=== PATIENT | male | born 1945 | race Caucasian/White ===

== ENCOUNTER 2018-10-21 19:59 | Emergency (ER) | payer MEDICARE, BC | END 2018-10-21 20:50 | disposition home or self-care (01) | LOC: SCSER 19:59 | DX: I10 Essential (primary) hypertension (principal); E78.5 Hyperlipidemia, unspecified; G20 Parkinson's disease; E03.9 Hypothyroidism, unspecified; Z79.82 Long term (current) use of aspirin; Z79.899 Other long term (current) drug therapy | CPT/HCPCS: 93005 ==

== ENCOUNTER 2020-01-19 07:24 | Outpatient (CLI) | payer MEDICARE, BC, OTHER ==
--- NOTE | 2020-01-19 15:55 | RAD ---
PA AND LATERAL VIEWS CHEST: Date: 01/19/2020 HISTORY: Preoperative evaluation. FINDINGS: The heart size is normal. The aorta is tortuous. The lungs are well expanded without lobar consolidat ion, pneumothoraces, or pleural effusions. There are mild degenerative changes in the spine. IMPRESSION: No radiographic evidence of acute cardiopulmonary process. POS: [facility]
[2020-01-19 16:14] LABS: #Eosinphils 0.1 thou/uL (0.0-0.7); #Monocytes 0.4 thou/uL (0.11-0.59); %Basophils 0.2 % (0.0-1.0); %Eosinophils 1.6 % (0.0-10.0); %Lymphocytes 22.7 % (21.0-51.0); %Monocytes 8.7 % (0.0-10.0); %Neutrophils 66.8 % (42.0-75.0); Hemoglobin 13.8 g/dL (14.0-18.0); Mean Corpuscular Hemoglobin 34.2 pg (27.0-31.0); Mean Platelet Volume 8.9 fL (7.4-10.4); Platelet Count 125 thou/uL (130-400); RBC Distribution Width 11.8 % (11.5-14.5); Red Blood Cell (RBC) Count 4.03 mill/uL (4.70-6.10); White Blood Cell (WBC) Count 4.5 thou/uL (4.8-10.8)
[2020-01-19 16:52] LABS: Anion Gap 13 mmol/L (10-20); BUN (Urea Nitrogen) 18 mg/dL (8.4-25.7); Calc. Creatinine Clearance 0 mL/min (70-130); Calcium 9.3 mg/dL (7.8-10.44); Carbon Dioxide 27 mmol/L (23-31); Chloride 100 mmol/L (98-107); Estimated GFR-MDRD 69; Glucose 114 mg/dL (83-110); Potassium 4.5 mmol/L (3.5-5.1); Sodium 135 mmol/L (136-145)
[2020-01-20 11:57] LABS: SARS-CoV-2 MS2 Positive; SARS-CoV-2 N Gene Negative; SARS-CoV-2 S Gene Negative; SARS-CoV-2 by NAA Not Detected (NotDetected); SARS-CoV-2 orf1ab Negative
== END 2020-01-19 07:25 | disposition home or self-care (01) ==
LOC: LABBT 07:24 → SCSRAD 07:25
PROVIDERS: ATTEND Specialist
DX: Z01.818 Encounter for other preprocedural examination (principal); Z20.828 Contact with and (suspected) exposure to other viral communicable diseases; K40.90 Unilateral inguinal hernia, without obstruction or gangrene, not specified as recurrent
CPT/HCPCS: 71046; 80048; 85025; 87635; 93005; 93010; U0003

== ENCOUNTER 2023-02-22 13:04 | Outpatient (CLI) | payer MEDICARE, BC ==
[2023-02-22 15:27] LABS: #Eosinphils 0.1 10x3/uL (0.0-0.5); #Monocytes 0.7 10x3/uL (0.0-1.1); #Neutrophils 3.3 10x3/uL (1.5-8.4); %Basophils 0.6 % (0.0-2.0); %Eosinophils 1.5 % (0.0-6.0); %Monocytes 12.8 % (0.0-10.0); %Neutrophils 61.7 % (40.0-75.0); Hematocrit 40.1 % (38.8-50.0); Hemoglobin 13.5 g/dL (13.5-17.5); Mean Corpuscular HGB CONC 33.7 g/dL (32.0-36.0); Mean Corpuscular Hemoglobin 32.9 pg (27.0-33.0); Mean Corpuscular Volume 97.8 fl (81.2-95.1); Mean Platelet Volume 10.7 fl (7.4-10.4); Platelet Count 159 10x3/uL (150-450); RBC Distribution Width 11.8 % (11.5-14.5); White Blood Cell (WBC) Count 5.4 10x3/uL (3.5-10.5)
[2023-02-22 15:29] LABS: Anion Gap 12 mmol/L (10-20); BUN (Urea Nitrogen) 25 mg/dL (8.4-25.7); Calc. Creatinine Clearance 0 mL/min (70-130); Calcium 9.5 mg/dL (7.8-10.44); Carbon Dioxide 26 mmol/L (23-31); Chloride 104 mmol/L (98-107); Estimated GFR 69; Glucose 72 mg/dL (83-110); Potassium 4.6 mmol/L (3.5-5.1); Sodium 137 mmol/L (136-145)
== END 2023-02-22 13:05 | disposition home or self-care (01) ==
LOC: LABBT 13:04
PROVIDERS: ATTEND Specialist
DX: Z01.818 Encounter for other preprocedural examination (principal); K40.90 Unilateral inguinal hernia, without obstruction or gangrene, not specified as recurrent
CPT/HCPCS: 71046; 80048; 85025; 93005; 93010

== ENCOUNTER 2023-02-28 11:35 | Day surgery (SDC) | payer MEDICARE, BC ==
[2023-02-22 14:19] VITALS: BMI 24.3
[2023-02-28] MEDS ORDERED: Acetaminophen 500 MG TAB ONE (12:24)
[2023-02-28] MEDS ORDERED: Ketorolac Tromethamine 30 MG/ML VIAL ONE (12:24)
[2023-02-28] MEDS ORDERED: Bupivacaine PF 0.5% 30 ML VIAL ONE (14:23)
[2023-02-28] MEDS ORDERED: EPINEPHrine 1 MG/ML VIAL ONE (14:23)
== END 2023-02-28 14:56 | disposition home or self-care (01) ==
LOC: SDC 11:35
PROVIDERS: ATTEND Specialist
DX: K40.90 Unilateral inguinal hernia, without obstruction or gangrene, not specified as recurrent (principal); I10 Essential (primary) hypertension; E78.00 Pure hypercholesterolemia, unspecified; E07.9 Disorder of thyroid, unspecified; G20.C Parkinsonism, unspecified; Z53.8 Procedure and treatment not carried out for other reasons; Z79.899 Other long term (current) drug therapy; Z88.2 Allergy status to sulfonamides; Z79.82 Long term (current) use of aspirin; Z79.890 Hormone replacement therapy; Z88.8 Allergy status to other drugs, medicaments and biological substances; Z91.048 Other nonmedicinal substance allergy status
CPT/HCPCS: J0171; J1885; S0020

== ENCOUNTER 2023-03-05 11:10 | Outpatient (CLI) | payer MEDICARE, BC ==
[2023-03-05 12:59] LABS: #Eosinphils 0.1 10x3/uL (0.0-0.5); #Monocytes 0.7 10x3/uL (0.0-1.1); #Neutrophils 4.8 10x3/uL (1.5-8.4); %Basophils 0.4 % (0.0-2.0); %Eosinophils 0.9 % (0.0-6.0); %Lymphocytes 17.4 % (18.0-47.0); %Monocytes 10.1 % (0.0-10.0); %Neutrophils 71.1 % (40.0-75.0); ALT (SGPT) Less than 7 U/L (8-55); AST (SGOT) 27 U/L (5-34); Albumin 4.6 g/dL (3.4-4.8); Alkaline Phosphatase 76 U/L (40-110); Anion Gap 14 mmol/L (10-20); BUN (Urea Nitrogen) 20 mg/dL (8.4-25.7); Bilirubin, Total 2.1 mg/dL (0.2-1.2); Calc. Creatinine Clearance 0 mL/min (70-130); Calcium 9.9 mg/dL (7.8-10.44); Carbon Dioxide 26 mmol/L (23-31); Chloride 102 mmol/L (98-107); Estimated GFR 61; Globulin 2.3 g/dL (2.4-3.5); Glucose 91 mg/dL (83-110); Hematocrit 43.4 % (38.8-50.0); Hemoglobin 14.7 g/dL (13.5-17.5); Mean Corpuscular HGB CONC 33.9 g/dL (32.0-36.0); Mean Corpuscular Hemoglobin 33.1 pg (27.0-33.0); Mean Corpuscular Volume 97.7 fl (81.2-95.1); Mean Platelet Volume 10.1 fl (7.4-10.4); Platelet Count 158 10x3/uL (150-450); Potassium 4.6 mmol/L (3.5-5.1); Protein, Total 6.9 g/dL (5.8-8.1); RBC Distribution Width 11.9 % (11.5-14.5); Red Blood Cell (RBC) Count 4.44 10x6/uL (4.32-5.72); Sodium 137 mmol/L (136-145); White Blood Cell (WBC) Count 6.7 10x3/uL (3.5-10.5)
== END 2023-03-05 11:11 | disposition home or self-care (01) ==
LOC: LABBT 11:10
PROVIDERS: ATTEND Internal Medicine Cardiovascular Disease
DX: Z01.812 Encounter for preprocedural laboratory examination (principal)
CPT/HCPCS: 80053; 85025

== ENCOUNTER 2023-03-07 05:59 | Day surgery (SDC) | payer MEDICARE, BC ==
[2023-03-05 11:45] VITALS: BMI 24.3
[2023-03-07] MEDS ORDERED: Heparin 10,000 UNITS/ 10 ML VIAL ONE (06:19)
[2023-03-07] MEDS ORDERED: Lidocaine 1% (PF) 30 ML VIAL ONE (06:19)
[2023-03-07] MEDS ORDERED: Nitroglycerin 50 MG/250 ML BOT 0 ML ONE (06:20)
[2023-03-07] MEDS ORDERED: Midazolam HCl 2 mg/2 ml Vial ONE (07:20)
[2023-03-07] MEDS ORDERED: fentaNYL 50 mcg/mL 1 mL Vial ONE (07:20)
[2023-03-07] MEDS ORDERED: Iopamidol 370 76% 100 ML VIAL ONE (12:46)
== END 2023-03-07 12:50 | disposition home or self-care (01) ==
LOC: SDC 05:59
PROVIDERS: ATTEND Internal Medicine Cardiovascular Disease
PROC: 4A023N7 Measurement of Cardiac Sampling and Pressure, Left Heart, Percutaneous Approach (ICD-10-PCS; principal; 2023-03-07)
DX: R94.39 Abnormal result of other cardiovascular function study (principal); I65.23 Occlusion and stenosis of bilateral carotid arteries; I10 Essential (primary) hypertension; G20.C Parkinsonism, unspecified; E78.00 Pure hypercholesterolemia, unspecified; Z90.49 Acquired absence of other specified parts of digestive tract; Z90.89 Acquired absence of other organs; Z88.2 Allergy status to sulfonamides; Z88.8 Allergy status to other drugs, medicaments and biological substances; Z91.048 Other nonmedicinal substance allergy status
CPT/HCPCS: 93458; C1769; C1894; J3010; 36415; 86850; 86900; 86901; 99152; 99153; J1644; J2001; J2250; Q9967

== ENCOUNTER 2023-03-08 13:30 | Inpatient (IN) | payer MEDICARE, BC ==
[2023-03-11] MEDS ORDERED: PHENYLEPHRINE-NS 100 MCG/ML 10 ML SYRINGE ONE (07:15)
[2023-03-11] MEDS ORDERED: Heparin 10,000 UNITS/1 ML VIAL 30,000 UNITS in Sodium Chloride 0.9% 1,000 ML FS SCH (07:15)
[2023-03-11] MEDS ORDERED: Albumin 5% 500 ML ONE (07:15)
[2023-03-11] MEDS ORDERED: Dexmedetomidine 200 MCG/2 ML VIAL ONE (08:51)
[2023-03-11] MEDS ORDERED: Fentanyl 250 MCG/5 ML VIAL ONE (08:52)
[2023-03-11] MEDS ORDERED: Midazolam HCl 2 mg/2 ml Vial ONE (08:52)
[2023-03-11] MEDS ORDERED: CEFAZOLIN 2 GM VIAL ONE (08:58)
[2023-03-11] MEDS ORDERED: Sodium Chloride 0.9% 100 ML ONE (08:58)
[2023-03-11] MEDS ORDERED: Papaverine 60 MG/2 ML VIAL ONE (09:26)
[2023-03-11] MEDS ORDERED: Norepinephrine 4 MG/4 ML VIAL ONE (09:26)
[2023-03-11] MEDS ORDERED: Vecuronium 10 MG VIAL ONE (09:26)
[2023-03-11] MEDS ORDERED: Vancomycin 1 GM VIAL ONE (09:26)
[2023-03-11] MEDS ORDERED: Dexamethasone 20 MG/5 ML VIAL ONE (09:26)
[2023-03-11] MEDS ORDERED: Aminocaproic Acid 5 GM/20 ML VIAL ONE (09:26)
[2023-03-11] MEDS ORDERED: Protamine Sulfate 250 MG/25 ML VIAL ONE (09:26)
[2023-03-11] MEDS ORDERED: Cardioplegic Soln 1,000 ML BAG ONE (09:26)
[2023-03-11] MEDS ORDERED: Heparin 30,000 units/30 ml VIAL ONE (09:26)
[2023-03-11] MEDS ORDERED: Lidocaine 1% PF 5 ML VIAL ONE (09:26)
[2023-03-11] MEDS ORDERED: NEOSTIGMINE 3 MG/3 ML SYR 3 MG/3 ML SYRINGE ONE (09:26)
[2023-03-11] MEDS ORDERED: Mannitol 12.5 GM/50 ML ONE (09:26)
[2023-03-11] MEDS ORDERED: Lidocaine 2% PF 100 mg/5 ml Syringe ONE (09:26)
[2023-03-11] MEDS ORDERED: Potassium Chloride 60 MEQ/30 ML VIAL ONE (09:26)
[2023-03-11] MEDS ORDERED: Heparin 5,000 UNITS/ML VIAL ONE (09:26)
[2023-03-11] MEDS ORDERED: Thrombin 5000 UNITS/5 ML VIAL ONE (09:26)
[2023-03-11] MEDS ORDERED: Calcium Chloride 1 GM/10 ML Abboject SYRINGE ONE (09:26)
[2023-03-11] MEDS ORDERED: Nitroglycerin 50 MG/250 ML BOT ONE (09:26)
[2023-03-11] MEDS ORDERED: Glycopyrrolate 0.2 MG/ML 5 ML SYRINGE ONE (09:26)
[2023-03-11] MEDS ORDERED: PROPOFOL 200 MG/20 ML VIAL ONE (09:26)
[2023-03-11] MEDS ORDERED: Sodium Bicarb 50 MEQ/50 ML VIAL ONE (09:26)
[2023-03-11] MEDS ORDERED: Magnesium 5 GM/10 ML VIAL ONE (09:26)
[2023-03-11] MEDS ORDERED: HYDROcodone/Acetaminophen 5/325 mg Tablet PO PRN ×2 (12:53)
[2023-03-11] MEDS ORDERED: hydrALAZINE 20 MG/ML VIAL SLOW IVP PRN (12:53)
[2023-03-11] MEDS ORDERED: Nitroglycerin 50 MG/250 ML BOT 250 ML IVPB PRN (12:53)
[2023-03-11] MEDS ORDERED: Bisacodyl 5 MG TAB PO PRN (12:53)
[2023-03-11] MEDS ORDERED: fentaNYL 50 mcg/mL 1 mL Vial SLOW IVP PRN ×2 (12:53)
[2023-03-11] MEDS ORDERED: Bisacodyl 10 MG SUPP PR PRN (12:53)
[2023-03-11] MEDS ORDERED: Ipratropium/Albuterol 3 ML NEB NEB PRN (12:53)
[2023-03-11] MEDS ORDERED: Hetastarch 6% 500 ML 500 ML IVPB PRN (12:53)
[2023-03-11] MEDS ORDERED: DOPamine 400 MG/D5W 250 ML 250 ML IVPB PRN (12:53)
[2023-03-11] MEDS ORDERED: Potassium Chloride 20 MEQ/100 ML PREMIX BAG IVPB PRN (12:53)
[2023-03-11] MEDS ORDERED: Mag-Al 1200 mg/1200 mg/30 ML UDCUP PO PRN (12:53)
[2023-03-11] MEDS ORDERED: Ondansetron PF 4 MG/2 ML Vial IVP PRN (12:53)
[2023-03-11] MEDS ORDERED: niCARdipine 25 MG in Sodium Chloride 0.9% 250 ML 250 ML IVPB PRN (12:53)
[2023-03-11] MEDS ORDERED: Post-Op Insulin Drip Protocol IVPB ONE (12:53)
[2023-03-11] MEDS ORDERED: NOREPINEPHRINE 8 MG/250 ML-D5W 250 ML IVPB PRN (12:53)
[2023-03-11] MEDS ORDERED: Guaifenesin DM 100-10/5 ML UDCUP PO PRN (12:53)
[2023-03-11] MEDS ORDERED: Dextrose 5% in Water 1,000 ML IV PRN (13:15)
[2023-03-11] MEDS ORDERED: HUMULIN R 100 UNITS in Sodium Chloride 0.9% 100 ML IVPB SCH (13:15)
[2023-03-11] MEDS ORDERED: Dextrose 50% Abboject 50 ML SYRINGE SLOW IVP PRN (13:15)
[2023-03-11] MEDS ORDERED: Glucagon 1 MG/ML KIT SC PRN (13:15)
[2023-03-11] MEDS: Insulin Regular 300 UNITS/3 ML VIAL SC PRN ×3 (13:59→21:32)
[2023-03-11] MEDS: Lactated Ringer's 1,000 ML IV SCH ×2 (14:04→23:16)
[2023-03-11 14:16] LABS: #Monocytes 0.4 thou/uL (0.11-0.59); #Neutrophils 7.2 thou/uL (1.40-6.50); %Basophils 0.4 % (0.0-1.0); %Eosinophils 0.5 % (0.0-10.0); %Lymphocytes 7.5 % (21.0-51.0); %Monocytes 5.1 % (0.0-10.0); %Neutrophils 85.4 % (42.0-75.0); Hematocrit 34.2 % (42.0-52.0); Hemoglobin 11.7 g/dL (14.0-18.0); Mean Corpuscular HGB CONC 34.2 g/dL (32.0-36.0); Mean Corpuscular Hemoglobin 33.4 pg (27.0-31.0); Mean Corpuscular Volume 97.7 fl (78.0-98.0); Mean Platelet Volume 10.5 fL (7.4-10.4); Platelet Count 106 10x3/uL (130-400); RBC Distribution Width 11.9 % (11.5-14.5); White Blood Cell (WBC) Count 8.4 10x3/uL (4.8-10.8)
[2023-03-11 14:28] LABS: INR-International Normal Ratio 1.3; Prothrombin Time 17.2 sec (12.0-14.7)
[2023-03-11 14:29] LABS: PTT 32.8 sec (22.9-36.1)
[2023-03-11 14:38] LABS: Anion Gap 11 mmol/L (10-20); BUN (Urea Nitrogen) 12 mg/dL (8.4-25.7); Calc. Creatinine Clearance 76 mL/min (70-130); Calcium 8.5 mg/dL (7.8-10.44); Carbon Dioxide 22 mmol/L (23-31); Chloride 107 mmol/L (98-107); Estimated GFR 90; Glucose 143 mg/dL (83-110); Potassium 4.3 mmol/L (3.5-5.1); Sodium 136 mmol/L (136-145)
[2023-03-11] MEDS: Ketorolac Tromethamine 30 MG/ML VIAL IVP SCH ×2 (17:23→23:16)
[2023-03-11] MEDS: CEFAZOLIN 2 GM in Sodium Chloride 0.9% 100 ML IVPB SCH (17:23)
[2023-03-11] MEDS: Carbidopa/Levodopa 25-250 mg Tablet PO SCH ×3 (17:33→21:31)
[2023-03-11 19:43] LABS: Hematocrit 32.5 % (42.0-52.0); Hemoglobin 11.4 g/dL (14.0-18.0)
[2023-03-11 20:11] LABS: Potassium 4.2 mmol/L (3.5-5.1)
[2023-03-11] MEDS ORDERED: Tamsulosin HCl 0.4 MG CAP PO SCH ×2 (21:00→23:59)
[2023-03-11] MEDS: Atorvastatin Calcium 20 MG TAB PO SCH (21:31)
[2023-03-11] MEDS: Carbidopa/Levodopa 25-100 mg Tablet PO SCH (21:31)
[2023-03-11] MEDS: Famotidine/PF 20 mg/2ml Vial SLOW IVP SCH (21:35)
[2023-03-12] MEDS: CEFAZOLIN 2 GM in Sodium Chloride 0.9% 100 ML IVPB SCH ×2 (00:17→08:31)
[2023-03-12] MEDS: Insulin Regular 300 UNITS/3 ML VIAL SC PRN ×2 (01:06→06:25)
[2023-03-12] MEDS: Levothyroxine Sodium 25 MCG TAB PO SCH (05:31)
[2023-03-12] MEDS: Ketorolac Tromethamine 30 MG/ML VIAL IVP SCH (05:31)
[2023-03-12] MEDS: Levothyroxine Sodium 112 MCG TAB PO SCH (05:35)
[2023-03-12 05:50] LABS: #Monocytes 0.8 thou/uL (0.11-0.59); #Neutrophils 8.2 thou/uL (1.40-6.50); %Basophils 0.1 % (0.0-1.0); %Lymphocytes 5.5 % (21.0-51.0); %Monocytes 8.6 % (0.0-10.0); %Neutrophils 85.5 % (42.0-75.0); Hematocrit 29.3 % (42.0-52.0); Hemoglobin 10.2 g/dL (14.0-18.0); Mean Corpuscular HGB CONC 34.8 g/dL (32.0-36.0); Mean Corpuscular Hemoglobin 33.7 pg (27.0-31.0); Mean Corpuscular Volume 96.7 fl (78.0-98.0); Mean Platelet Volume 10.8 fL (7.4-10.4); Platelet Count 114 10x3/uL (130-400); Red Blood Cell (RBC) Count 3.03 mill/uL (4.70-6.10); White Blood Cell (WBC) Count 9.6 10x3/uL (4.8-10.8)
[2023-03-12 06:11] LABS: Anion Gap 14 mmol/L (10-20); BUN (Urea Nitrogen) 20 mg/dL (8.4-25.7); Calc. Creatinine Clearance 61 mL/min (70-130); Calcium 8.6 mg/dL (7.8-10.44); Carbon Dioxide 20 mmol/L (23-31); Chloride 105 mmol/L (98-107); Estimated GFR 76; Glucose 127 mg/dL (83-110); Potassium 4.8 mmol/L (3.5-5.1); Sodium 134 mmol/L (136-145)
[2023-03-12] MEDS: Aspirin 325 MG TAB PO SCH (08:25)
[2023-03-12] MEDS: Famotidine/PF 20 mg/2ml Vial SLOW IVP SCH ×2 (08:25→21:48)
[2023-03-12] MEDS: Carbidopa/Levodopa 25-250 mg Tablet PO SCH ×4 (08:28→21:47)
[2023-03-12] MEDS: Polyethylene Glycol 3350 17 GM Packet PO SCH (08:28)
[2023-03-12] MEDS: Carbidopa/Levodopa 25-100 mg Tablet PO SCH ×4 (08:28→21:47)
[2023-03-12] MEDS ORDERED: Non-Formulary Item 1 EACH (Levothyroxine Sodium [Synthroid] 137 MCG Tablet) PO SCH (09:00)
[2023-03-12] MEDS: Morphine 2 MG/ML VIAL SLOW IVP PRN ×2 (09:47→12:27)
[2023-03-12] MEDS: Tamsulosin HCl 0.4 MG CAP PO SCH (21:47)
[2023-03-12] MEDS: Atorvastatin Calcium 20 MG TAB PO SCH (21:48)
[2023-03-12] MEDS: Acetaminophen 325 MG TAB PO PRN (22:39)
[2023-03-13 05:08] LABS: #Monocytes 1.2 thou/uL (0.11-0.59); %Basophils 0.2 % (0.0-1.0); %Eosinophils 0.1 % (0.0-10.0); %Lymphocytes 8.3 % (21.0-51.0); %Monocytes 10.4 % (0.0-10.0); %Neutrophils 80.6 % (42.0-75.0); Hematocrit 27.6 % (42.0-52.0); Hemoglobin 9.5 g/dL (14.0-18.0); Mean Corpuscular HGB CONC 34.4 g/dL (32.0-36.0); Mean Corpuscular Hemoglobin 34.3 pg (27.0-31.0); Mean Corpuscular Volume 99.6 fl (78.0-98.0); Mean Platelet Volume 11.2 fL (7.4-10.4); Platelet Count 105 10x3/uL (130-400); RBC Distribution Width 12.3 % (11.5-14.5); Red Blood Cell (RBC) Count 2.77 mill/uL (4.70-6.10); White Blood Cell (WBC) Count 11.1 10x3/uL (4.8-10.8)
[2023-03-13 05:19] LABS: Anion Gap 10 mmol/L (10-20); BUN (Urea Nitrogen) 27 mg/dL (8.4-25.7); Calc. Creatinine Clearance 60 mL/min (70-130); Calcium 8.9 mg/dL (7.8-10.44); Carbon Dioxide 25 mmol/L (23-31); Chloride 100 mmol/L (98-107); Estimated GFR 74; Glucose 120 mg/dL (83-110); Potassium 4.9 mmol/L (3.5-5.1); Sodium 130 mmol/L (136-145)
[2023-03-13] MEDS: Levothyroxine Sodium 112 MCG TAB PO SCH (06:41)
[2023-03-13] MEDS: Levothyroxine Sodium 25 MCG TAB PO SCH (06:41)
[2023-03-13] MEDS: Aspirin 325 MG TAB PO SCH (08:20)
[2023-03-13] MEDS: Carbidopa/Levodopa 25-250 mg Tablet PO SCH ×4 (08:20→21:33)
[2023-03-13] MEDS: Carbidopa/Levodopa 25-100 mg Tablet PO SCH ×4 (08:20→21:33)
[2023-03-13] MEDS: Famotidine/PF 20 mg/2ml Vial SLOW IVP SCH ×2 (08:21→21:33)
[2023-03-13] MEDS: Acetaminophen 325 MG TAB PO PRN ×2 (08:22→21:33)
[2023-03-13] MEDS: Polyethylene Glycol 3350 17 GM Packet PO SCH ×2 (08:26→10:35)
[2023-03-13] MEDS ORDERED: Lactated Ringer's 500 ML IV SCH (08:30)
[2023-03-13 09:39] LABS: Hematocrit 30.1 % (42.0-52.0); Hemoglobin 10.2 g/dL (14.0-18.0); Platelet Count 93 10x3/uL (130-400)
[2023-03-13] MEDS: Ketorolac Tromethamine 30 MG/ML VIAL IVP SCH ×4 (10:33→23:32)
[2023-03-13 14:22] LABS: Hematocrit 27.8 % (42.0-52.0); Hemoglobin 9.4 g/dL (14.0-18.0); Platelet Count 92 10x3/uL (130-400)
[2023-03-13] MEDS: Atorvastatin Calcium 20 MG TAB PO SCH (21:33)
[2023-03-13] MEDS: Tamsulosin HCl 0.4 MG CAP PO SCH (21:34)
[2023-03-14 04:37] LABS: #Eosinphils 0.1 thou/uL (0.0-0.7); #Neutrophils 6.7 thou/uL (1.40-6.50); %Basophils 0.2 % (0.0-1.0); %Eosinophils 0.8 % (0.0-10.0); %Lymphocytes 12.5 % (21.0-51.0); %Neutrophils 75.2 % (42.0-75.0); Hematocrit 26.2 % (42.0-52.0); Mean Corpuscular HGB CONC 34.4 g/dL (32.0-36.0); Mean Corpuscular Hemoglobin 33.6 pg (27.0-31.0); Mean Corpuscular Volume 97.8 fl (78.0-98.0); Mean Platelet Volume 11.2 fL (7.4-10.4); Platelet Count 96 10x3/uL (130-400); RBC Distribution Width 12.2 % (11.5-14.5); Red Blood Cell (RBC) Count 2.68 mill/uL (4.70-6.10); White Blood Cell (WBC) Count 8.9 10x3/uL (4.8-10.8)
[2023-03-14 05:00] LABS: Anion Gap 10 mmol/L (10-20); BUN (Urea Nitrogen) 34 mg/dL (8.4-25.7); Calc. Creatinine Clearance 53 mL/min (70-130); Calcium 8.4 mg/dL (7.8-10.44); Carbon Dioxide 24 mmol/L (23-31); Chloride 97 mmol/L (98-107); Estimated GFR 64; Glucose 103 mg/dL (83-110); Potassium 4.2 mmol/L (3.5-5.1); Sodium 127 mmol/L (136-145)
[2023-03-14] MEDS: Ketorolac Tromethamine 30 MG/ML VIAL IVP SCH (06:01)
[2023-03-14] MEDS ORDERED: traMADol HCl 50 MG TAB PO PRN (06:05)
[2023-03-14] MEDS: Levothyroxine Sodium 112 MCG TAB PO SCH (06:06)
[2023-03-14] MEDS: Levothyroxine Sodium 25 MCG TAB PO SCH (06:06)
[2023-03-14] MEDS: Sodium Chloride 0.9% 1,000 ML IV SCH (06:15)
[2023-03-14] MEDS ORDERED: Nitroglycerin 0.4 MG TAB (25 Tab Bottle) SL PRN (08:42)
[2023-03-14] MEDS ORDERED: Mineral Oil ENEMA PR PRN (08:42)
[2023-03-14] MEDS ORDERED: Artificial Tear Sol 15 ML BOT EA EYE PRN (08:42)
[2023-03-14] MEDS: Aspirin 325 MG TAB PO SCH (10:00)
[2023-03-14] MEDS: Famotidine 20 MG TAB PO SCH ×2 (10:00→21:52)
[2023-03-14] MEDS: Carbidopa/Levodopa 25-100 mg Tablet PO SCH ×4 (10:00→21:51)
[2023-03-14] MEDS: Carbidopa/Levodopa 25-250 mg Tablet PO SCH ×4 (10:01→21:51)
[2023-03-14] MEDS ORDERED: FLU VACC QS2023(65UP)/MF59C/PF 60 MCG/0.5 ML SYRINGE IM ONE (15:00)
[2023-03-14] MEDS: Atorvastatin Calcium 20 MG TAB PO SCH (21:50)
[2023-03-14] MEDS: Tamsulosin HCl 0.4 MG CAP PO SCH (21:52)
[2023-03-14] MEDS: Acetaminophen 325 MG TAB PO PRN (21:52)
[2023-03-15 04:49] LABS: #Eosinphils 0.1 thou/uL (0.0-0.7); #Monocytes 0.8 thou/uL (0.11-0.59); #Neutrophils 4.5 thou/uL (1.40-6.50); %Basophils 0.2 % (0.0-1.0); %Eosinophils 1.5 % (0.0-10.0); %Monocytes 12.7 % (0.0-10.0); %Neutrophils 72.1 % (42.0-75.0); Hematocrit 24.7 % (42.0-52.0); Hemoglobin 8.6 g/dL (14.0-18.0); Mean Corpuscular HGB CONC 34.8 g/dL (32.0-36.0); Mean Corpuscular Hemoglobin 34.3 pg (27.0-31.0); Mean Corpuscular Volume 98.4 fl (78.0-98.0); Mean Platelet Volume 11.6 fL (7.4-10.4); RBC Distribution Width 12.2 % (11.5-14.5); Red Blood Cell (RBC) Count 2.51 mill/uL (4.70-6.10); White Blood Cell (WBC) Count 6.2 10x3/uL (4.8-10.8)
[2023-03-15 05:10] LABS: Anion Gap 9 mmol/L (10-20); BUN (Urea Nitrogen) 28 mg/dL (8.4-25.7); Calc. Creatinine Clearance 60 mL/min (70-130); Calcium 8.6 mg/dL (7.8-10.44); Carbon Dioxide 25 mmol/L (23-31); Chloride 103 mmol/L (98-107); Estimated GFR 69; Glucose 101 mg/dL (83-110); Potassium 4.1 mmol/L (3.5-5.1); Sodium 133 mmol/L (136-145)
[2023-03-15 05:36] LABS: Platelet Count 109 10x3/uL (130-400)
[2023-03-15] MEDS: Sodium Chloride 0.9% 1,000 ML IV SCH (05:40)
[2023-03-15] MEDS: Levothyroxine Sodium 25 MCG TAB PO SCH (05:40)
[2023-03-15] MEDS: Levothyroxine Sodium 112 MCG TAB PO SCH (05:40)
[2023-03-15] MEDS: Carbidopa/Levodopa 25-100 mg Tablet PO SCH ×4 (08:32→20:29)
[2023-03-15] MEDS: Polyethylene Glycol 3350 17 GM Packet PO SCH (08:32)
[2023-03-15] MEDS: Aspirin Chewable 81 MG TAB PO SCH (08:32)
[2023-03-15] MEDS: Carbidopa/Levodopa 25-250 mg Tablet PO SCH ×4 (08:32→20:29)
[2023-03-15] MEDS: Multivit, Chewable SF 1 TAB PO SCH (08:32)
[2023-03-15] MEDS: Furosemide 40 MG TAB PO SCH (08:32)
[2023-03-15] MEDS: Famotidine 20 MG TAB PO SCH ×2 (08:32→20:30)
[2023-03-15] MEDS ORDERED: Potassium Chloride 20 MEQ TAB PO SCH (12:00)
[2023-03-15] MEDS: Atorvastatin Calcium 20 MG TAB PO SCH (20:29)
[2023-03-15] MEDS: Tamsulosin HCl 0.4 MG CAP PO SCH (20:30)
[2023-03-15] MEDS: Rosuvastatin 10 MG TAB PO SCH (20:30)
[2023-03-16 04:59] LABS: #Eosinphils 0.1 thou/uL (0.0-0.7); #Monocytes 0.8 thou/uL (0.11-0.59); #Neutrophils 3.8 thou/uL (1.40-6.50); %Basophils 0.4 % (0.0-1.0); %Eosinophils 2.3 % (0.0-10.0); %Lymphocytes 16.1 % (21.0-51.0); %Monocytes 14.3 % (0.0-10.0); %Neutrophils 66.5 % (42.0-75.0); Hematocrit 26.3 % (42.0-52.0); Hemoglobin 8.9 g/dL (14.0-18.0); Mean Corpuscular HGB CONC 33.8 g/dL (32.0-36.0); Mean Corpuscular Hemoglobin 33.6 pg (27.0-31.0); Mean Corpuscular Volume 99.2 fl (78.0-98.0); Mean Platelet Volume 10.6 fL (7.4-10.4); Platelet Count 142 10x3/uL (130-400); RBC Distribution Width 12.2 % (11.5-14.5); Red Blood Cell (RBC) Count 2.65 mill/uL (4.70-6.10); White Blood Cell (WBC) Count 5.7 10x3/uL (4.8-10.8)
[2023-03-16] MEDS: Levothyroxine Sodium 25 MCG TAB PO SCH (06:12)
[2023-03-16] MEDS: Levothyroxine Sodium 112 MCG TAB PO SCH (06:12)
[2023-03-16] MEDS: Multivit, Chewable SF 1 TAB PO SCH (09:04)
[2023-03-16] MEDS: Furosemide 40 MG TAB PO SCH (09:04)
[2023-03-16] MEDS: Polyethylene Glycol 3350 17 GM Packet PO SCH (09:04)
[2023-03-16] MEDS: Carbidopa/Levodopa 25-250 mg Tablet PO SCH ×4 (09:04→21:06)
[2023-03-16] MEDS: Famotidine 20 MG TAB PO SCH ×2 (09:04→21:05)
[2023-03-16] MEDS: Carbidopa/Levodopa 25-100 mg Tablet PO SCH ×4 (09:04→21:06)
[2023-03-16] MEDS: Aspirin Chewable 81 MG TAB PO SCH (09:04)
[2023-03-16] MEDS ORDERED: Ezetimibe 10 MG TAB PO SCH (21:00)
[2023-03-16] MEDS: Rosuvastatin 10 MG TAB PO SCH (21:06)
[2023-03-16] MEDS: Tamsulosin HCl 0.4 MG CAP PO SCH (21:06)
[2023-03-17 05:36] VITALS: TEMP 97.7; BMI 24.5
[2023-03-17] MEDS: Levothyroxine Sodium 25 MCG TAB PO SCH (06:31)
[2023-03-17] MEDS: Levothyroxine Sodium 112 MCG TAB PO SCH (06:31)
[2023-03-17] MEDS: Carbidopa/Levodopa 25-250 mg Tablet PO SCH (08:40)
[2023-03-17] MEDS: Famotidine 20 MG TAB PO SCH (08:40)
[2023-03-17] MEDS: Carbidopa/Levodopa 25-100 mg Tablet PO SCH (08:40)
[2023-03-17] MEDS: Aspirin Chewable 81 MG TAB PO SCH (08:41)
[2023-03-17] MEDS: Furosemide 40 MG TAB PO SCH (08:41)
[2023-03-17] MEDS: Multivit, Chewable SF 1 TAB PO SCH (08:45)
[2023-03-17] MEDS: Polyethylene Glycol 3350 17 GM Packet PO SCH (08:45)
[2023-03-17] MEDS ORDERED: Lisinopril 2.5 MG TAB PO SCH (09:00)
[2023-03-17 12:02] VITALS: BP 99/50
[2023-03-25 14:12] LABS: Actual Bicarbonate (HCO3a) 23.2 mEq/L (22-28); Analyzer IN Cardio OR; Base Excess (BEa) -0.6 mEq/L (-2.0 to +3.0); CO2 Tension 35.5 mmHg (35.0-45.0); Calcium, Ionized (arterial) 1.17 mmol/L (1.12-1.30); Carboxyhemoglobin (COHb) 0.3 gm% (0.0-3.0); Hematocrit-ABG 37 % (42.0-52.0); Hemoglobin (Hb) 12.7 g/dL (14.0-18.0); O2 Tension (PaO2), arterial 480.5 mmHg (> 70.0); Potassium - ABG Lab 4.12 mmol/L (3.70-5.30); pH, Arterial 7.434 (7.35-7.45)
[2023-03-25 14:13] LABS: Actual Bicarbonate (HCO3a) 23.3 mEq/L (22-28); Analyzer IN Cardio OR; Base Excess (BEa) -0.6 mEq/L (-2.0 to +3.0); CO2 Tension 35.9 mmHg (35.0-45.0); Calcium, Ionized (arterial) 1.16 mmol/L (1.12-1.30); Carboxyhemoglobin (COHb) 0.3 gm% (0.0-3.0); Hematocrit-ABG 35 % (42.0-52.0); O2 Tension (PaO2), arterial 375.5 mmHg (> 70.0); Potassium - ABG Lab 4.23 mmol/L (3.70-5.30)
[2023-03-25 14:13] LABS: Actual Bicarbonate (HCO3a) 24.8 mEq/L (22-28); Analyzer IN Cardio OR; Base Excess (BEa) -1.3 mEq/L (-2.0 to +3.0); CO2 Tension 48.3 mmHg (35.0-45.0); Calcium, Ionized (arterial) 1.09 mmol/L (1.12-1.30); Carboxyhemoglobin (COHb) 0.3 gm% (0.0-3.0); Hematocrit-ABG 29 % (42.0-52.0); Hemoglobin (Hb) 9.7 g/dL (14.0-18.0); O2 Tension (PaO2), arterial 436.3 mmHg (> 70.0); Potassium - ABG Lab 5.09 mmol/L (3.70-5.30); pH, Arterial 7.329 (7.35-7.45)
[2023-03-25 14:15] LABS: Actual Bicarbonate (HCO3v) 24.4 mEq/L (22-28); Analyzer IN Cardio OR; Calcium, Ionized (venous) 1.12 mmol/L (1.16-1.32); Chloride (VBG) 104 mmol/L (98-106); Hematocrit-VBG 28 % (42.0-52.0); Hemoglobin (Hb) 9.6 g/dL (12.6-17.4); Potassium (VBG) 5.18 mmol/L (3.70-5.30); Sodium 133 mmol/L (133-146); pH (venous) 7.312 (7.32-7.43)
[2023-03-25 14:16] LABS: Actual Bicarbonate (HCO3a) 22.6 mEq/L (22-28); Analyzer IN Cardio OR; Calcium, Ionized (arterial) 1.19 mmol/L (1.12-1.30); Carboxyhemoglobin (COHb) 0.3 gm% (0.0-3.0); Hematocrit-ABG 28 % (42.0-52.0); Hemoglobin (Hb) 9.6 g/dL (14.0-18.0); O2 Tension (PaO2), arterial 452.6 mmHg (> 70.0); Potassium - ABG Lab 4.49 mmol/L (3.70-5.30); pH, Arterial 7.393 (7.35-7.45)
[2023-03-25 14:18] LABS: Actual Bicarbonate (HCO3a) 22.6 mEq/L (22-28); Analyzer IN Cardio OR; CO2 Tension 37.7 mmHg (35.0-45.0); Calcium, Ionized (arterial) 1.16 mmol/L (1.12-1.30); Hematocrit-ABG 34 % (42.0-52.0); Hemoglobin (Hb) 11.7 g/dL (14.0-18.0); O2 Tension (PaO2), arterial 485.6 mmHg (> 70.0); Potassium - ABG Lab 4.53 mmol/L (3.70-5.30); Puncture Site Arterial Line; pH, Arterial 7.395 (7.35-7.45)
[2023-03-25 14:19] LABS: Puncture Site Arterial Line
[2023-03-25 14:20] LABS: Puncture Site Arterial Line
[2023-03-25 14:20] LABS: Puncture Site Arterial Line
[2023-03-25 14:20] LABS: Puncture Site Arterial Line
== END 2023-03-17 14:00 | disposition home or self-care (01) | DRG 236 ==
LOC: SURG A 03-11 06:59 → CCU 03-11 13:52 → 2NO 03-14 16:33
PROVIDERS: ADMIT Thoracic Surgery (Cardiothoracic Vascular Surgery); ATTEND Thoracic Surgery (Cardiothoracic Vascular Surgery)
PROC: 02100Z9 Bypass Coronary Artery, One Artery from Left Internal Mammary, Open Approach (ICD-10-PCS; principal; 2023-03-11)
PROC: 021009W Bypass Coronary Artery, One Artery from Aorta with Autologous Venous Tissue, Open Approach (ICD-10-PCS; 2023-03-11)
PROC: 06BQ3ZZ Excision of Left Saphenous Vein, Percutaneous Approach (ICD-10-PCS; 2023-03-11)
PROC: 5A1221Z Performance of Cardiac Output, Continuous (ICD-10-PCS; 2023-03-11)
PROC: 02L70CK Occlusion of Left Atrial Appendage with Extraluminal Device, Open Approach (ICD-10-PCS; 2023-03-11)
PROC: 30233J1 Transfusion of Nonautologous Serum Albumin into Peripheral Vein, Percutaneous Approach (ICD-10-PCS; 2023-03-11)
PROC: 5A1223Z Performance of Cardiac Pacing, Continuous (ICD-10-PCS; 2023-03-11)
DX: I25.10 Atherosclerotic heart disease of native coronary artery without angina pectoris (principal); R44.3 Hallucinations, unspecified; I31.9 Disease of pericardium, unspecified; I48.92 Unspecified atrial flutter; R00.1 Bradycardia, unspecified; E87.70 Fluid overload, unspecified; I10 Essential (primary) hypertension; E78.5 Hyperlipidemia, unspecified; I48.0 Paroxysmal atrial fibrillation; Z88.2 Allergy status to sulfonamides; Z88.8 Allergy status to other drugs, medicaments and biological substances
CPT/HCPCS: 36415; 36416; 36430; 71045; 80048; 82805; 82947; 85025; 85610; 85730; 86850; 86900; 86901; 93005; 93010; 93798; 93926; A4311; C1751; J1100; J1265; J1644; J1815; J1885; J2001; J2150; J2250; J2272; J2440; J2704; J2720; J3010; J3370; J3475; J3480; J3490; J7050; J7120; P9045; S0017; S0028

== ENCOUNTER 2023-04-17 13:04 | Outpatient (CLI) | payer MEDICARE, BC ==
[2023-04-17 14:38] LABS: #Monocytes 0.4 10x3/uL (0.0-1.1); #Neutrophils 4.1 10x3/uL (1.5-8.4); %Basophils 0.6 % (0.0-2.0); %Eosinophils 0.4 % (0.0-6.0); %Lymphocytes 13.7 % (18.0-47.0); %Monocytes 7.7 % (0.0-10.0); %Neutrophils 77.4 % (40.0-75.0); Hematocrit 35.5 % (38.8-50.0); Hemoglobin 11.7 g/dL (13.5-17.5); Mean Corpuscular Hemoglobin 31.8 pg (27.0-33.0); Mean Corpuscular Volume 96.5 fl (81.2-95.1); Mean Platelet Volume 9.9 fl (7.4-10.4); Platelet Count 165 10x3/uL (150-450); RBC Distribution Width 13.5 % (11.5-14.5); Red Blood Cell (RBC) Count 3.68 10x6/uL (4.32-5.72); White Blood Cell (WBC) Count 5.3 10x3/uL (3.5-10.5)
[2023-04-17 14:55] LABS: Anion Gap 13 mmol/L (10-20); BUN (Urea Nitrogen) 30 mg/dL (8.4-25.7); Calc. Creatinine Clearance 0 mL/min (70-130); Calcium 9.6 mg/dL (7.8-10.44); Carbon Dioxide 27 mmol/L (23-31); Chloride 101 mmol/L (98-107); Estimated GFR 53; Glucose 113 mg/dL (83-110); Potassium 4.7 mmol/L (3.5-5.1); Sodium 136 mmol/L (136-145)
== END 2023-04-17 13:05 | disposition home or self-care (01) ==
LOC: LABBT 13:04
PROVIDERS: ATTEND Specialist
DX: Z01.818 Encounter for other preprocedural examination (principal); K40.90 Unilateral inguinal hernia, without obstruction or gangrene, not specified as recurrent
CPT/HCPCS: 36415; 71046; 80048; 85025; 86850; 86900; 86901

== ENCOUNTER 2023-04-18 08:49 | Day surgery (SDC) | payer MEDICARE, BC ==
[2023-04-17 14:15] VITALS: BMI 24.3
[2023-04-18] MEDS ORDERED: Lidocaine 1% PF 5 ML VIAL ONE (09:09)
[2023-04-18] MEDS ORDERED: PROPOFOL 20 ML ONE (09:09)
[2023-04-18] MEDS ORDERED: fentaNYL PF 100 MCG/2 ML SYRINGE ONE (09:09)
[2023-04-18] MEDS ORDERED: Rocuronium Bromide 10 MG/ML (10ML VIAL) ONE (09:09)
[2023-04-18] MEDS ORDERED: Ketorolac Tromethamine 30 MG/ML VIAL ONE (09:22)
[2023-04-18] MEDS ORDERED: Acetaminophen 500 MG TAB ONE (09:23)
[2023-04-18] MEDS ORDERED: Bupivacaine 0.25% HCL 30 ML VIAL ONE (11:00)
[2023-04-18] MEDS ORDERED: EPINEPHrine 1 MG/ML VIAL ONE (11:00)
[2023-04-18] MEDS ORDERED: Sodium Chloride 0.9% 100 ML ONE (11:13)
[2023-04-18] MEDS ORDERED: CEFAZOLIN 2 GM VIAL ONE (11:13)
[2023-04-18] MEDS ORDERED: Dexamethasone 20 MG/5 ML VIAL ONE (11:42)
[2023-04-18] MEDS ORDERED: PHENYLEPHRINE-NS 100 MCG/ML 10 ML SYRINGE ONE (12:21)
[2023-04-18] MEDS ORDERED: ePHEDrine Sulfate 50 MG/10 ML VIAL ONE (12:31)
[2023-04-18] MEDS ORDERED: Ondansetron PF 4 MG/2 ML Vial ONE (12:44)
[2023-04-18] MEDS ORDERED: SUGAMMADEX SODIUM 200 MG/2 ML VIAL ONE (12:44)
[2023-04-18] MEDS ORDERED: fentaNYL 50 mcg/mL 1 mL Vial ONE (13:35)
== END 2023-04-18 16:18 | disposition home or self-care (01) ==
LOC: SDC 08:49
PROVIDERS: ATTEND Specialist
PROC: 0YQ64ZZ Repair Left Inguinal Region, Percutaneous Endoscopic Approach (ICD-10-PCS; principal; 2023-04-18)
DX: K40.90 Unilateral inguinal hernia, without obstruction or gangrene, not specified as recurrent (principal); E78.00 Pure hypercholesterolemia, unspecified; E07.9 Disorder of thyroid, unspecified; I10 Essential (primary) hypertension; G20.A1 Parkinson's disease without dyskinesia, without mention of fluctuations; I25.10 Atherosclerotic heart disease of native coronary artery without angina pectoris; I73.00 Raynaud's syndrome without gangrene; F10.90 Alcohol use, unspecified, uncomplicated; Z90.89 Acquired absence of other organs; Z95.0 Presence of cardiac pacemaker; Z88.8 Allergy status to other drugs, medicaments and biological substances; Z88.2 Allergy status to sulfonamides; Z79.890 Hormone replacement therapy; Z79.82 Long term (current) use of aspirin; Z79.899 Other long term (current) drug therapy
CPT/HCPCS: 49650; A4314; C1781; J0171; J3010; J1100; J1885; J2405; J2704; J3490; S0020